=== PATIENT | female | born 1995 | race Caucasian/White ===

== ENCOUNTER 2019-10-04 10:57 | Emergency (ER) | payer OTHER, SELFPAY ==
--- NOTE | ~2019-10-04 | XR_ITS ---
XR knee LT min 4V 10/04/2019 11:54 INDICATION: Left knee pain PROCEDURE: 4 views left knee COMPARISON: No prior studies for comparison. FINDINGS: Fracture, dislocation or subluxation is not identified. No significant joint effusion. The soft tissues appear within normal limits. No foreign bodies are identified. IMPRESSION: 1: NO ACUTE BONE OR JOINT ABNORMALITY IDENTIFIED. Reviewed, dictated and finalized at location A.
--- NOTE | ~2019-10-04 | US_ITS ---
EXAMINATION: US venous doppler [facility] EXAM DATE: 10/04/2019 12:10 INDICATION: Left leg, knee pain. TECHNIQUE: Multiple grayscale, color flow and Doppler images of the left lower extremity deep venous system were obtained and reviewed. There is no prior study for comparison. FINDINGS: The left common femoral, femoral and profunda veins demonstrate normal color flow, respirat ory variation, augmentation and compressibility. Compressibility, color flow confirmed within the le ft popliteal, posterior tibial, peroneal, and greater saphenous veins. IMPRESSION: 1. No left lower extremity deep venous thrombosis. Reviewed, dictated and finalized at location B.
[2019-10-04 11:13] VITALS: BP 138/79; PULSE 98; RESP 18; TEMP 36.6; O2SAT 100
--- NOTE | 2019-10-04 11:39 | ED.LOWEXIN ---
HPI - Extremity Injury (Lower) General Chief Complaint: Extremity Injury, Lower <CHAPARRO Garcia Last Filed: 10/04/19 13:55> Stated Complaint: ?DVT <CHAPARRO Garcia Last Filed: 10/04/19 13:55> Time Seen by Provider: 10/04/19 11:30 <CHAPARRO Garcia Last Filed: 10/04/19 13:55> Source: patient <CHAPARRO Garcia Last Filed: 10/04/19 13:55> Mode of arrival: wheelchair <CHAPARRO Garcia Last Filed: 10/04/19 13:55> Limitations: no limitations <CHAPARRO Garcia Last Filed: 10/04/19 13:55> History of Present Illness HPI Narrative: This is a 24-year-old female that presents the emergency department for left knee pain since yesterday. Reports she was seen at the urgent care for this and sent here for further evaluation. Reports the pain is in the back of the knee and radiates down the leg. Reports some swelling to the area. She was sent here to rule out DVT. Denies fever, erythema, decreased range of motion or numbness. <CHAPARRO Garcia Last Filed: 10/04/19 13:55> Related Data Home Medications: Home Medications Medication Instructions Recorded Confirmed No Home Medications 10/04/19 10/04/19 <CHAPARRO Garcia Last Filed: 10/04/19 13:55> Allergies/Adverse Reactions: Allergies Allergy/AdvReac Type Severity Reaction Status Date / Time No Known Allergies Allergy Verified 10/04/19 11:16 <CHAPARRO Garcia Last Filed: 10/04/19 13:55> Review of Systems Review of Systems: Narrative: CONSTITUTIONAL: Denies fever SKIN: Denies rash MUSCULOSKELETAL: Reports joint pain, and myalgia. NEUROLOGIC: Denies numbness <CHAPARRO Garcia Last Filed: 10/04/19 13:55> All systems reviewed & are unremarkable except as noted in HPI and below <CHAPARRO Garcia Last Filed: 10/04/19 13:55> COUNT INCLUDES THE [facility] Past Medical History Medical History: Medical History (Updated 10/04/19 @ 13:55 by Catrachita Waite PA-C) No active medical problems <Catrachita Waite PA-C - Last Filed: 10/04/19 13:55> Social History Social History: Social History (Updated 10/04/19 @ 11:42 by Catrachita Waite PA-C) Smoking status: Never smoker Gender identity (if verbalized by the patient): Female <Catrachita Waite PA-C - Last Filed: 10/04/19 13:55> Exam Narrative: Exam Narrative: GENERAL: Well-appearing, well-nourished, and in no acute distress. HEAD: Normocephalic, atraumatic. EYES: EOMI. EXTREMITIES: Normal range of motion. Mild swelling about the left knee. Tender to palpation of the left calf. No erythema or warmth. Normal DP pulses. Normal sensation SKIN: Warm, dry, no rash. NEURO: No focal deficits. Alert and oriented x3. PSYCH: Normal mood and affect <Catrachita Waite PA-C - Last Filed: 10/04/19 13:55> Course Vital Signs Vital signs: Vital Signs Temperature 98 F 10/04/19 11:13 Pulse Rate 98 10/04/19 11:13 Respiratory Rate 18 10/04/19 11:13 Blood Pressure 138/79 10/04/19 11:13 Pulse Oximetry 100 10/04/19 11:13 Temperature 98 F 10/04/19 11:13 Pulse Rate 66 10/04/19 14:20 Respiratory Rate 15 10/04/19 14:20 Blood Pressure 122/73 10/04/19 14:20 Pulse Oximetry 98 10/04/19 14:20 <Catrachita Waite PA-C - Last Filed: 10/04/19 13:55> Vital Signs Temperature 98 F 10/04/19 11:13 Pulse Rate 98 10/04/19 11:13 Respiratory Rate 18 10/04/19 11:13 Blood Pressure 138/79 10/04/19 11:13 Pulse Oximetry 100 10/04/19 11:13 Temperature 98 F 10/04/19 11:13 Pulse Rate 66 10/04/19 14:20 Respiratory Rate 15 10/04/19 14:20 Blood Pressure 122/73 10/04/19 14:20 Pulse Oximetry 98 10/04/19 14:20 <Khalida Mclaughlin MD - Last Filed: 10/04/19 17:45> MDM - Extremity Injury (Lower) MDM Narrative Medical decision making narrative: Patient presents to the emergency department for left knee pain x1 day. No known injury or trauma. No er
[2019-10-04 13:01] LABS: Basophils Percent Auto 0.2 % (0.2-1.2); Eosinophils Percent Auto 0.1 % (0-4.4); Hematocrit 45.1 % (37.0-47.0); Hemoglobin 15.6 g/dL (12.0-15.0); Immature Granulocyte Absolute 0.06 K/mm3 (0.00-0.031); Immature Granulocyte Percent A 0.5 % (0-0.5); Lymphocytes Absolute Auto 1.63 K/mm3 (0.9-3.2); Lymphocytes Percent Auto 12.6 % (18.3-44.2); Mean Corpuscular HGB Conc 34.6 g/dl (32-36); Mean Corpuscular Hemoglobin 32.5 pg (26-34); Mean Platelet Volume 9.3 fl (7.4-10.4); Monocytes Absolute Auto 0.6 K/mm3 (0.1-0.6); Monocytes Percent Auto 4.9 % (2.6-8.5); Neutrophils Absolute Auto 10.6 K/mm3 (1.3-6.7); Neutrophils Percent Auto 81.7 % (45.5-73.1); Platelet Count Result 237 k/mm3 (150-375); Red Cell Distribution Width 11.7 % (11.5-14.5); White Blood Count 12.9 K/mm3 (4.5-10.0)
[2019-10-04 13:11] LABS: INR 0.9; Prothrombin Time 12.3 Seconds (11.1-14.7)
[2019-10-04 13:12] LABS: Blood Urea Nitrogen 14 mg/dL (7-17); Calcium 9.2 mg/dL (8.4-10.2); Carbon Dioxide 24 mmol/L (22-30); Chloride 105 mmol/L (98-107); Estimated CRCL calculation 106 ml/min; Estimated Glomerular Filt Rate > 60; Glucose 103 mg/dL (65-105); Partial Thromboplastin Time 28.5 SECONDS (22.3-36.8); Potassium 4.1 mmol/L (3.4-5.0); Sodium 138 mmol/L (137-145)
[2019-10-04 13:33] VITALS: BP 122/79; PULSE 87; RESP 15; O2SAT 100
[2019-10-04 14:20] VITALS: BP 122/73; PULSE 66; RESP 15; O2SAT 98
== END 2019-10-04 14:21 | disposition home or self-care (01) ==
PROVIDERS: Physician Assistant; Emergency Provider General Practice
DX: M25.562 Pain in left knee (principal); M79.662 Pain in left lower leg
CPT/HCPCS: 36415; 73564; 80048; 85025; 85610; 85730; 93971; 99284